=== PATIENT | male | born 1975 | race Caucasian/White ===

== ENCOUNTER 2017-03-12 12:50 | Emergency (ER) | payer SELFPAY ==
[2017-03-12 13:02] VITALS: TEMP 97.4
[2017-03-12] MEDS ORDERED: LIDOCAINE 1% 10 ML VIAL INJ ONE (13:32)
[2017-03-12] MEDS ORDERED: LIDOCAINE 1% W/ EPINEPHRINE 20 ML VIAL INJ ONE (13:33)
[2017-03-12] MEDS ORDERED: CLINDAMYCIN HCL CAP 150 MG CAP PO ONE (13:36)
--- NOTE | 2017-03-12 13:36 | ED.PDOC ---
History of Present Illness - General Chief Complaint: Skin/Abrasion/Tear Stated Complaint: painful knot to mid-back Time Seen by Provider: 03/12/17 13:23 Source: patient Exam Limitations: no limitations - History of Present Illness Initial Comments: Onel Mai 41 y/o male came to er with painful knot on back for the last 2 years getting worse. Timing/Duration: changing over time, other - 2 years Severity: moderate Location: torso Improving Factors: nothing Worsening Factors: nothing Associated Symptoms: denies symptoms Allergies/Adverse Reactions: Allergies NO KNOWN ALLERGY Allergy (Verified 03/12/17 13:01) Home Medications: Ambulatory Orders Cephalexin 1,000 mg PO BID #20 cap 03/12/17 Tramadol HCl 50 mg PO Q4HR PRN #14 tab 03/12/17 Review of Systems - Review of Systems Constitutional: States: no symptoms reported EENTM: States: no symptoms reported Respiratory: States: no symptoms reported Cardiology: States: no symptoms reported Skin: States: see HPI All other Systems: Reviewed and Negative, No Change from Baseline Past Medical History (General) - Patient Medical History Hx Stroke: No Hx Congestive Heart Failure: No Hx Diabetes: No - Vaccination History Hx Influenza Vaccination: No - Social History Hx Tobacco Use: Yes Family Medical History - Family History Father Family History: No Known Living Status: Unknown Physical Exam - Physical Exam General Appearance: Alert, Comfortable, No apparent distress Eyes, Ears, Nose, Throat Exam: PERRL/EOMI, normal ENT inspection Neck: non-tender, full range of motion Cardiovascular/Chest: regular rate, rhythm, no murmur Respiratory: lungs clear, normal breath sounds Gastrointestinal/Abdominal: non tender, soft, no organomegaly Back Exam: normal inspection, no CVA tenderness Extremity: no pedal edema, no calf tenderness Skin Exam: warm/dry, normal color Skin Character: abscess - mid back cutaneous Lymphatic: no adenopathy Progress - Progress Progress: 03/12/17 14:49 Last Vital Signs Temp 97.4 F L 03/12/17 12:58 Pulse 62 03/12/17 12:58 Resp 16 03/12/17 12:58 BP 156/94 03/12/17 12:58 Pulse Ox 96 03/12/17 12:58 Procedures - Incision and Drainage #1 Site: back Procedure and Prep: betadine prep, sterile drapes applied, sterile dressings applied, gauze wick placed, irrigated, other - infected inclusion cyst capsule taken out with adherence to sq layer vicryl 3-0, 2 stitches placed on skin incision Blade Size: 11 Departure - Departure Clinical Impression: Infected epithelial inclusion cyst Time of Disposition: 15:28 Disposition: Discharge to Home or Self Care Condition: Good Departure Forms: ED Discharge - Pt. Copy, Patient Portal Self Enrollment, Work Release Form Instructions: Epidermal Cyst, DI for Epidermal Cyst Referrals: Marcell Kate MD [Primary Care Provider] - 1-2 Weeks Prescriptions: Tramadol HCl 50 mg PO Q4HR PRN #14 tab PRN Reason: Pain Cephalexin 1,000 mg PO BID #20 cap Home Medications: Ambulatory Orders Cephalexin 1,000 mg PO BID #20 cap 03/12/17 Tramadol HCl 50 mg PO Q4HR PRN #14 tab 03/12/17 Additional Instructions: FOR REMOVAL OF PACKING TOMORROW PM 03/12/2017 [facility] -ER or gopi ALLISON
[2017-03-12] MEDS ORDERED: HYDROcodone 10MG/APAP 325MG 1 EA TAB ONE (14:46)
[2017-03-12] MEDS ORDERED: HYDROcodone 10MG/APAP 325MG 1 EA TAB PO ONE (14:49)
[2017-03-12] MEDS: CLINDAMYCIN PHOSPHATE 150 MG/ML VIAL IM ONE ×2 (14:51→15:44)
[2017-03-12 15:59] VITALS: BP 142/70; O2SAT 97
== END 2017-03-12 15:45 | disposition home or self-care (01) ==
LOC: ER 12:50
DX: L72.0 Epidermal cyst (principal)

== ENCOUNTER 2020-02-05 18:25 | Emergency (ER) | payer SELFPAY ==
--- NOTE | 2020-02-05 18:38 | ED.PDOC ---
History of Present Illness - General Chief Complaint: Skin/Abrasion/Tear Time Seen by Provider: 02/05/20 18:25 Source: patient, RN notes reviewed, Vital Signs reviewed - History of Present Illness Initial Comments: 8 months with boil on chin over the past few weeks is getting red, tender, warm. States he had a similar abscess on his neck in the past. no fevers. Otherwise no complaints. NOt a diabetic, but doesn't have a pcp. Allergies/Adverse Reactions: Allergies NO KNOWN ALLERGY Allergy (Verified 02/05/20 18:37) Home Medications: Ambulatory Orders Ibuprofen 800 mg PO TID PRN #30 tab 02/05/20 Sulfamethoxazole-Trimethoprim [Bactrim Ds 800-160 mg] 1 tab PO BID #14 tab 02/05/20 Review of Systems - Review of Systems Constitutional: Denies: chills, fever EENTM: Denies: blurred vision, throat pain Respiratory: Denies: cough, short of breath Cardiology: Denies: chest pain, palpitations Gastrointestinal/Abdominal: Denies: abdominal pain, nausea Genitourinary: Denies: hematuria Musculoskeletal: Denies: joint pain, muscle pain Skin: States: see HPI Neurological: Denies: headache, numbness Endocrine: Denies: unexplained weight loss Hematologic/Lymphatic: Denies: easy bleeding, easy bruising Past Medical History (General) - Patient Medical History Hx Seizures: No Hx Stroke: No Hx Dementia: No Hx of COPD: No Hx Cardiac Disorders: No Hx Congestive Heart Failure: No Hx Pacemaker: No Hx Hypertension: No Hx Thyroid Disease: No Hx Diabetes: No Hx Gastroesophageal Reflux: No Hx Renal Disease: No Hx Cancer: No - Vaccination History Hx Tetanus, Diphtheria Vaccination: Yes Hx Influenza Vaccination: No Hx Pneumococcal Vaccination: Yes - Social History Hx Tobacco Use: Yes Hx Alcohol Use: No Hx Substance Use: No Hx Substance Use Treatment: No Hx Depression: No Family Medical History - Family History Father Family History: No Known Living Status: Unknown Physical Exam - Physical Exam General Appearance: Alert, Comfortable, No apparent distress, Well Developed, Well Groomed, Well Hydrated, Well Nourished Eyes, Ears, Nose, Throat Exam: PERRL/EOMI, other - no teeth Neck: non-tender, full range of motion, supple Cardiovascular/Chest: regular rate, rhythm, no edema, no murmur Respiratory: normal breath sounds, no respiratory distress, no accessory muscle use Gastrointestinal/Abdominal: soft Extremity: normal inspection 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 ttp Skin Character: abscess Progress - Progress Progress: 02/05/20 19:14 The data reviewed when caring for this patient included: nurse notes, prior records, etc. The history and assessments from nurses notes were reviewed and considered, and the patient's home medication list was also reviewed and considered. My assessment and the results of testing completed here in the ED were discussed with the patient/family. All questions were answered, and they express understanding of my assessment and the plan. They have been instructed to return if their symptoms worsen, and have been asked to follow up with their primary care physician to recheck today's presenting complaint. Strict return precautions given. I have reviewed medication, benefits, alternatives and side effects. Patient decided to proceed with medication. Iram Miguel DO #[id number] Procedures - Incision and Drainage #1 Procedure and Prep: betadine prep, sterile drapes applied, irrigated, pus drained - moderate amount, other - cyst lining removed. Blade Size: 11 Departure - Departure Clinical Impression: Abscess Time of Disposition: 19:06 Disposition: Discharge to Home or Self Care Condition: Fair Departure Forms: ED Discharge - Pt. Copy, Patient Portal Self Enrollment Instructions: DI for Abrasion, Skin Abscess Diet: resume usual diet Activity: increase activity as tolerated Prescriptions: Sulfamethoxazole-Trimethoprim [Bactrim Ds 800-160 mg] 1 tab PO BID #14 tab Ibuprofen 800 mg PO TID PRN #30 tab PRN Reason: Pain Home Medications: Ambulatory Orders Ibuprofen 800 mg PO TID PRN #30 tab 02/05/20 Sulfamethoxazole-Trimethoprim [Bactrim Ds 800-160 mg] 1 tab PO BID #14 tab 02/05/20
[2020-02-05] MEDS ORDERED: HYDROcodone 5MG/APAP 325MG 1 EA TAB PO ONE ×2 (18:43→19:06)
[2020-02-05] MEDS ORDERED: CLINDAMYCIN HCL CAP 150 MG CAP PO ONE (19:06)
[2020-02-05] MEDS ORDERED: IBUPROFEN 200 MG TAB PO ONE (19:06)
[2020-02-05 19:45] VITALS: BP 117/89; TEMP 98.2; O2SAT 96
== END 2020-02-05 19:44 | disposition home or self-care (01) ==
LOC: ER 18:25
DX: L02.01 Cutaneous abscess of face (principal); Z87.891 Personal history of nicotine dependence